=== PATIENT | male | born 1950 | race Caucasian/White ===

== ENCOUNTER → 2017-01-15 | Outpatient (CLI) | payer OTHER ==
[~2017-01-15] MED LIST: AMLO10TA2 PO; B/P MEDS; BACL20TA PO; BENA40TA PO; DICL75TA PO; GUAI100S6 PO; MEDR4PAK3 PO; OMEP20TA PO; PERC5TAB12 PO; PRAV80TA2 PO; TAMS0.4C4 PO; TRIA37.5 PO; ZITH250T PO
--- NOTE | 2017-01-20 12:28 | RSPPFT ---
DATE OF PROCEDURE: 01/15/17 COMMENTS: Spirometry with FVC of 3.3 predicted 4.6, FEV1 of 2.2 predicted 3.6, FEV1/FVC ratio 67% predicted 78%. Post-bronchodilator FEV1 increases to 2.5. Air trapping is present with RV 3.6 predicted 2.5. DLCO is 61% of predicted. IMPRESSION: On the basis of the above, patient has an obstructive lung defect with responsiveness to acutely inhaled bronchodilator. Air trapping is present. DLCO is decreased.
== END ==
LOC: PHRSP 07:42
PROVIDERS: ATTEND Internal Medicine
DX: Z87.891 Personal history of nicotine dependence (principal)
CPT/HCPCS: 94010; 94726; 94729

== ENCOUNTER 2017-01-27 08:57 | Emergency (ER) | payer OTHER ==
[~2017-01-27] VITALS: Ht 188 cm; Wt 140.5 kg
[~2017-01-27 08:57] MED LIST changes: -AMLO10TA2 PO; -BACL20TA PO; -BENA40TA PO; -DICL75TA PO; -OMEP20TA PO; -PERC5TAB12 PO; -PRAV80TA2 PO; -TAMS0.4C4 PO; -TRIA37.5 PO
[2017-01-27 08:58] VITALS: BP 189/92; PULSE 101; RESP 16; TEMP 98.7; O2SAT 95
[2017-01-27] MEDS ORDERED: TRIA37.5 PO (09:15)
[2017-01-27] MEDS ORDERED: OMEP20TA PO (09:15)
[2017-01-27] MEDS ORDERED: TAMS0.4C4 PO (09:15)
[2017-01-27] MEDS ORDERED: DICL75TA PO (09:15)
[2017-01-27] MEDS ORDERED: AMLO10TA2 PO (09:15)
[2017-01-27] MEDS ORDERED: BENA40TA PO (09:15)
[2017-01-27] MEDS ORDERED: BACL20TA PO (09:15)
[2017-01-27] MEDS ORDERED: PRAV80TA2 PO (09:15)
[2017-01-27] MEDS ORDERED: PERC5TAB12 PO (09:26)
[2017-01-27] MEDS ORDERED: MORPHINE SULFATE 4 MG/ML INJ IM ONE (09:30)
[2017-01-27] MEDS ORDERED: ONDANSETRON HCL 4 MG/2 ML VIAL IM ONE (09:30)
--- NOTE | 2017-01-27 09:32 | PD ---
HPI Chief Complaint: Back/ Neck Pain or Injury Time Seen by Provider: 09:11 Travel History International Travel<30 days: No Contact w/Intl Traveler<30days: No Traveled to known affect area: No History of Present Illness HPI This patient complains of back pain. He said periodic flares of back pain for the last 30 years. His current flares lasted 2-3 days. No specific injury. He denies fever or urinary or bowel retention or incontinence or any neurologic symptoms such as weakness sensory loss or paresthesia. Every time he gets a flare and cell was in the exact same spot which is where it is today. No sciatic radiation. He is pain in the right lower back. It is always in the exact same location. He tried diclofenac and baclofen which did not help. PFSH Past Medical History High Cholesterol: Yes GERD: Yes Genitourinary: Yes (ENLARGED PROSTATE) Hypertension: Yes Medical other: Yes (CHRONIC BACK PAIN) Immunizations Current: Yes Tetanus Vaccination: < 5 Years Influenza Vaccination: Yes Social History Alcohol Use: Yes (A "FEW" BEERS ON WEEKENDS) Tobacco Use: No Substance Use: No Allergies-Medications (Allergen,Severity, Reaction): Coded Allergies: No Known Allergies (Verified , 01/27/17) Reported Meds & Prescriptions Reported Meds & Active Scripts Active Percocet (Oxycodone-Acetaminophen) 5-325 mg Tab 1 Tab PO Q6H PRN Reported Diclofenac Sodium DR (Diclofenac Sodium) 75 Mg Tabdr 75 Mg PO BID Baclofen 20 Mg Tab 20 Mg PO DAILY Pravastatin 80 Mg Tab 80 Mg PO DAILY Amlodipine (Amlodipine Besylate) 10 Mg Tab 10 Mg PO DAILY Triamterene-Hydrochlorothiazide 37.5-25 Mg Tab 0.5 Tab PO DAILY Benazepril (Benazepril HCl) 40 Mg Tab 40 Mg PO DAILY Tamsulosin (Tamsulosin HCl) 0.4 Mg Cap 0.4 Mg PO HS Omeprazole 20 Mg Tab 20 Mg PO DAILY Review of Systems General / Constitutional: No: Fever HENT: No: Headaches Cardiovascular: No: Chest Pain or Discomfort Respiratory: No: Cough Physical Exam Narrative NEUROLOGICAL: Awake and alert. Pupils are equal round and reactive. Motor and sensory grossly within normal limits. Five out of 5 muscle strength in all muscle groups. Normal speech. GASTROINTESTINAL: Abdomen soft, non-tender, nondistended. Positive bowel sounds. No hepato-splenomegaly, or palpable masses. No guarding. Psych: Normal mood and affect. Normal insight and judgment. SKIN: Focused skin assessment reveals no rash or ulcers. Skin is warm and dry. Palpation shows no induration or nodules. Positive straight leg raise on the right side Data Data Last Documented VS Vital Signs Date Time Temp Pulse Resp B/P Pulse Ox O2 Delivery O2 Flow Rate FiO2 01/27/17 08:58 98.7 101 16 189/92 95 Orders Ondansetron Inj (Zofran Inj) (01/27/17 09:30) Morphine Inj (Morphine Inj) (01/27/17 09:30) [facility] Medical Decision Making Medical Screen Exam Complete: Yes Emergency Medical Condition: Yes Medical Record Reviewed: Yes Differential Diagnosis Sciatica, exacerbation of chronic back pain, lumbar strain Narrative Course I have reviewed the patient's electronic medical record. Patient is neurologically intact. He's had flares like this in the exact same spot for many many years. I don't see any indication for emergent imaging. I don't have clinical suspicion of AAA. Reports that he would like to have an MRI done at some point which she's never had before. He may have recurrent disc herniation. He does have an appointment with her primary care physician which will be a new one form but not until March. I've advised him to call the office today to see if that appointment can be moved up in light of his acute symptoms. I gave him injection of morphine and Zofran for symptom relief as well as a limited prescription of Percocet. Patient is hypertensive but literally took his blood pressure medicines right before arrival. I've advised him to check and recorded blood pressure daily Diagnosis Primary Impression: Back pain Qualified Code: M54.5 - Acute right-sided low back pain without sciatica Additional Impression: Hypertension Qualified Code: I10 - Hypertension, unspecified type Additional Instructions: The patient was advised to follow up with their physician and return if they worsen. The patient was warned about potential sedation for the medications they will receive on prescription. Check and record blood pressure daily Med/Other Pt SpecificInfo: Prescription(s) given Scripts Oxycodone-Acetaminophen (Percocet)5-325 mg Tab1 Tab PO Q6H PRN (PAIN) #15 TAB Ref 0 Prov:Austin Palma MD 01/27/17 Disposition: 01 DISCHARGE HOME Condition: Stable Austin Palma MD Jan 27, 2017 09:32
[2017-01-27 10:20] VITALS: BP 116/64
== END 2017-01-27 10:22 | disposition home or self-care (01) ==
LOC: PHED 08:57
DX: M54.5 Low back pain (principal); I10 Essential (primary) hypertension; E78.00 Pure hypercholesterolemia, unspecified; Z87.39 Personal history of other diseases of the musculoskeletal system and connective tissue; Z87.19 Personal history of other diseases of the digestive system; Z87.448 Personal history of other diseases of urinary system
CPT/HCPCS: 96372; 99284; J2270; J2405